=== PATIENT | female | born 1990 | race Caucasian/White ===

== ENCOUNTER 2017-04-10 16:03 | Emergency (ER) | payer SELFPAY, MEDICAID ==
[2017-04-10] MEDS: LIDOCAINE 2%/EPI MPF (SDV) 20 ML VIAL INJ (17:30)
== END 2017-04-10 18:15 | disposition home or self-care (01) ==
LOC: FTE 16:03
DX: L02.416 Cutaneous abscess of left lower limb (principal)
CPT/HCPCS: 10061; 99283-25

== ENCOUNTER 2017-04-19 12:10 | Emergency (ER) | payer MEDICAID ==
[2017-04-19] MEDS: HYDROCODONE/APAP (10/325) TAB PO (16:22)
== END 2017-04-19 17:32 | disposition home or self-care (01) ==
LOC: FTE 12:10
DX: R51 Headache (principal); M54.2 Cervicalgia
CPT/HCPCS: 70450; 72125; 81025; 99285-25

== ENCOUNTER 2018-08-22 01:37 | Emergency (ER) | payer SELFPAY, MEDICAID ==
[2018-08-22] MEDS: METOCLOPRAMIDE 10 MG INJ IV (03:07)
[2018-08-22] MEDS: KETOROLAC 30 MG INJ IV (03:07)
[2018-08-22] MEDS: DIPHENHYDRAMINE 50 MG INJ IV (03:07)
[2018-08-22] MEDS: SOD CHLORIDE 0.9% 500 ML IV (03:08)
== END 2018-08-22 05:10 | disposition home or self-care (01) ==
LOC: FTE 05:10
DX: G43.019 Migraine without aura, intractable, without status migrainosus (principal)
CPT/HCPCS: 81025; 96361; 96374; 96375; 99284-25